=== PATIENT | male | born 1950 ===

== ENCOUNTER 2017-10-21 21:08 | Inpatient (IN) | payer OTHER ==
[~2017-10-21] VITALS: Ht 177.8 cm; Wt 120.7 kg
--- NOTE | 2017-10-21 21:18 | NUR ---
Dr. Walker at bedside for MSE.
--- NOTE | 2017-10-21 21:20 | NUR ---
Pt brought in by ambulance for near syncope after smoking electronic cigarettes with THC.
[2017-10-21] MEDS ORDERED: ASPI-605 PO (21:22)
[2017-10-21] MEDS ORDERED: ATOR10TA PO (21:22)
[2017-10-21] MEDS ORDERED: LISI2.5T2 PO (21:22)
[2017-10-21] MEDS ORDERED: ONDANSETRON 4 MG/2 ML VIAL ONE (21:24)
[2017-10-21] MEDS ORDERED: ONDANSETRON 4 MG/2 ML VIAL IV ONE (21:30)
--- NOTE | 2017-10-21 21:30 | NUR ---
Pt's oxygen saturation 86% on room air, placed patient on O2@2L/min via nasal cannula. MD notified.
[2017-10-21] MEDS: IV NORMAL SALINE 1000 ML BAG IV ONE ×2 (21:33→21:34)
[2017-10-21 21:51] LABS: BASOPHILS # (AUTO) 0.1 K/uL (0.0-8.0); BASOPHILS % (AUTO) 0.9 % (0.0-2.0); EOSINOPHILS # (AUTO) 0.2 K/uL (0.0-0.7); HEMATOCRIT 42.4 % (36.7-47.1); LYMPHOCYTES # (AUTO) 1.5 K/uL (20.0-40.0); LYMPHOCYTES % (AUTO) 14.9 % (20.5-51.5); MEAN CORPUSCULAR HEMOGLOBIN 31.5 uug (23.8-33.4); MEAN CORPUSCULAR HGB CONC 35 g/dL (32.5-36.3); MONOCYTES # (AUTO) 0.7 K/uL (2.0-10.0); MONOCYTES % (AUTO) 7.2 % (0.0-11.0); NEUTROPHILS # (AUTO) 7.6 K/uL (1.8-8.9); PLATELET COUNT (AUTO) 246 K/uL (152-348); RED BLOOD CELL COUNT(AUTO) 4.76 MIL/uL (4.06-5.63); WHITE BLOOD COUNT (AUTO) 10.1 K/uL (3.6-10.2)
[2017-10-21 21:57] LABS: CREATININE 1.4 mg/dL (0.6-1.3); POTASSIUM 3.5 mmol/L (3.5-5.1)
[2017-10-21 22:12] LABS: BILIRUBIN,DIRECT 0.2 mg/dL (0.0-0.2); BILIRUBIN,TOTAL 0.7 mg/dL (0.2-1.0); TOTAL PROTEIN, SERUM 7.4 g/dL (6.4-8.2)
--- NOTE | 2017-10-21 22:14 | NUR ---
Pt states no longer nauseous, feels a whole lot better.
[2017-10-21] MEDS ORDERED: [UNRECOGNIZED DRUG - CODE] PO (22:38)
[2017-10-21] MEDS ORDERED: CLOP75TA15 PO (22:38)
[2017-10-21] MEDS ORDERED: IV NORMAL SALINE 1000 ML BAG IV ONE (22:45)
[2017-10-21] MEDS ORDERED: IV NORMAL SALINE 100 ML ONE (22:52)
[2017-10-21] MEDS ORDERED: IOHEXOL 350 100 ML INFUS..BTL ONE (22:52)
[2017-10-21] MEDS ORDERED: SWABABLE VALVE TRANSFER SET EA MC ONE (22:52)
[2017-10-21] MEDS ORDERED: NORMAL SALINE FLUSH 10 ML DISP.SYRIN ONE (22:52)
--- NOTE | 2017-10-21 23:32 | NUR ---
Pt out of ER for CT.
--- NOTE | 2017-10-22 00:10 | NUR ---
Patient back to ER from CT.
--- NOTE | 2017-10-22 00:18 | NUR ---
Dr. Walker on panel call with Dr. Kt Elias.
[2017-10-22] MEDS ORDERED: ACETAMINOPHEN 325 MG TABLET PO PRN (00:30)
[2017-10-22] MEDS ORDERED: MAGNESIUM HYDROXIDE 30 ML LIQUID UDC PO PRN (00:30)
[2017-10-22] MEDS ORDERED: ONDANSETRON 4 MG/2 ML VIAL IV PRN (00:30)
[2017-10-22] MEDS ORDERED: HYDROCODONE/APAP 5-325MG TABLET PO PRN (00:30)
[2017-10-22] MEDS ORDERED: NITROGLYCERIN 0.4 MG/TAB BOTTLE SL PRN (00:30)
[2017-10-22] MEDS ORDERED: MORPHINE SULFATE 4 MG/1 ML DISP.SYRIN IV PRN (00:30)
--- NOTE | 2017-10-22 01:36 | NUR ---
Passed report to Johnna SELLERS Tele.
[2017-10-22 02:09] VITALS: BP 125/68
--- NOTE | 2017-10-22 02:10 | NUR ---
nsg: pt received a/o x 4, fr er via [facility] with dx of near syncope. pt denies n/v, sob, or any discomfort. on 2L O2 via nc saturating at 97%. tele, SR with occasional pvc's. no acute distress noted. pt just feels exhausted. call light within reach. bed alarm on. cont to monitor.
[2017-10-22] MEDS ORDERED: CLOPIDOGREL 75 MG TABLET PO ONE (02:15)
[2017-10-22] MEDS ORDERED: ATORVASTATIN 10 MG TABLET PO ONE (02:15)
[2017-10-22] MEDS ORDERED: ASPIRIN EC 81 MG TABLET.DR PO ONE (02:15)
--- NOTE | 2017-10-22 02:17 | NUR ---
nsnd lactic is 2.8, fr 2.3. l/m with Dr. Kt Pang. awaiting for orders.
[2017-10-22] MEDS ORDERED: CLOPIDOGREL 75 MG TABLET ONE (02:23)
[2017-10-22] MEDS: IV NS 1000 ML 1,000 ML IV PRN ×2 (02:28→15:46)
[2017-10-22 04:00] VITALS: BP 123/64
--- NOTE | 2017-10-22 05:27 | NUR ---
nsg: pt comfortable sleeping. no acute distress noted. denies discomfort. tele, SR with occasional pvc's. cont to monitor.
--- NOTE | 2017-10-22 05:29 | NUR ---
nsg: all needs attended. no acute distress noted. pt still confuse, unable to make needs known. tele, SR with pac's and pvc's. cont to monitor.
--- NOTE | 2017-10-22 07:00 | NUR ---
RESTING IN BED WITH EYES CLOSED NO SS OF PAIN OR DISTRESS WITH 2L O2 NC. SR ON MONITOR
--- NOTE | 2017-10-22 09:11 | NUR ---
SEEN BY DR PATIÑO AWAITING MARKETING PROGRAM COORDINATOR
[2017-10-22 11:00] VITALS: BP 115/74
[2017-10-22 15:08] VITALS: BP 114/57
--- NOTE | 2017-10-22 16:12 | NUR ---
NO SS OF CP OR SOB, SR ON MONITOR WITH [facility]
--- NOTE | 2017-10-22 18:35 | NUR ---
SEEN BY DR SALINAS SAID OK TO DISCHARGE And follow-up with ship carpenter, dr acosta also notified with order to dc patient
[2017-10-22] MEDS ORDERED: CLOPIDOGREL 75 MG TABLET PO SCH (21:00)
[2017-10-22] MEDS ORDERED: ASPIRIN EC 81 MG TABLET.DR PO SCH (21:00)
[2017-10-22] MEDS ORDERED: ATORVASTATIN 10 MG TABLET PO SCH (21:00)
== END 2017-10-22 18:53 | disposition home or self-care (01) | DRG 683 ==
LOC: ER 21:12 → TELE 10-22 01:38 → MED 10-22 17:42
DX: N17.0 Acute kidney failure with tubular necrosis (principal); E87.2 Acidosis; E66.01 Morbid (severe) obesity due to excess calories; R55 Syncope and collapse; E78.5 Hyperlipidemia, unspecified; E86.0 Dehydration; I25.10 Atherosclerotic heart disease of native coronary artery without angina pectoris; K52.9 Noninfective gastroenteritis and colitis, unspecified; Z98.61 Coronary angioplasty status; I10 Essential (primary) hypertension; Z68.38 Body mass index [BMI] 38.0-38.9, adult; I25.2 Old myocardial infarction
CPT/HCPCS: 36415; 70030-TC; 71045; 71275; 83605; 85025; 85730; 86850; 86900; 86901; 87040; 93005; 93307; A4663; J2405; J3490; J7030; Q9967